=== PATIENT | female | born 1975 ===

== ENCOUNTER 2024-09-30 16:33 | Emergency (ER) | payer OTHER ==
[2024-09-30 16:46] VITALS: BP 130/85; PULSE 99; RESP 18; TEMP 98.3; BMI 35.7
[2024-09-30 18:49] LABS: BASO % 0.5 % (0-2.0); EOS % 1.7 % (0-4.5); HEMATOCRIT 38.4 % (32.4-45.2); HEMOGLOBIN 12.6 GM/dL (10.7-15.3); LYMPH % 29.3 % (8-40); MCH 27.4 pg (25.7-33.7); MCHC 32.7 g/dl (32.0-36.0); MEAN CELL VOLUME 83.7 fl (80-96); MONO % 6.3 % (3.8-10.2); NEUT % 62.2 % (42.8-82.8); PLATELET COUNT 286 10^3/uL (134-434); RBC 4.59 M/mm3 (3.60-5.2); WHITE BLOOD COUNT 9.9 K/mm3 (4.0-10.0)
[2024-09-30 18:56] LABS: INR 0.99 (0.83-1.09); PROTHROMBIN TIME (PATIENT) 11.4 SEC (9.7-13.0)
[2024-09-30 19:15] LABS: ALBUMIN 3.8 g/dl (3.4-5.0); BLOOD UREA NITROGEN 15.6 mg/dL (7-18); CALCIUM 9.5 mg/dL (8.5-10.1)
[2024-09-30 19:19] LABS: BILIRUBIN,TOTAL 0.3 mg/dL (0.2-1); CREATININE 0.8 mg/dL (0.55-1.3)
[2024-09-30] MEDS ORDERED: IBUPROFEN 600 MG TABLET (FP) PO ONE (19:34)
== END 2024-09-30 20:01 | disposition home or self-care (01) ==
LOC: JER 16:33
DX: M79.661 Pain in right lower leg (principal); M79.89 Other specified soft tissue disorders; R51.9 Headache, unspecified; R05.9 Cough, unspecified; M54.9 Dorsalgia, unspecified; R60.0 Localized edema; R00.0 Tachycardia, unspecified
CPT/HCPCS: 36415; 71046-TC-FY; 80053; 83880; 84484; 85025; 85379; 85610; 93005; 93010; 93970-TC; 99285-25